=== PATIENT | male | born 2000 ===

== ENCOUNTER 2022-12-30 13:57 | Emergency (ER) | payer SELFPAY ==
--- NOTE | 2022-12-30 14:26 | ED_ITS ---
HPI - Abdominal Pain General Chief Complaint: Nausea/Vomiting/Diarrhea Stated Complaint: vomiting since last night Time Seen by Provider: 12/30/22 17:16 Source: patient and family Mode of arrival: ambulatory Limitations: no limitations History of Present Illness HPI narrative: 22 yo male with no known medical history here with complaints of vomiting/diarrhea since last evening. Per patient his girlfriend has influenza. No abdominal pain, fevers, uri symptoms, skin rash, headache, neck pain/neck stiffness. Related Data Previous Rx's Medication Instructions Recorded ondansetron 4 mg disintegrating 4 mg PO Q6H PRN nausea and 12/30/22 tablet vomiting #15 tabs Allergies Allergy/AdvReac Type Severity Reaction Status Date / Time No Known Allergies Allergy Verified 12/30/22 14:28 Review of Systems Review of Systems Yes all other systems are reviewed and are negative Constitutional: Reports no additional constitutional complaints, Denies body ache(s), Denies chills, Denies fever(s), Denies headache(s) and Denies weakness Eyes: Reports no additional eye complaints and Denies change in vision Reports system reviewed and no additional complaints, except as documented, Denies dizziness, Denies headache(s), Denies nasal congestion, Denies nasal discharge and Denies neck pain Cardiovascular: Reports no additional cardiovascular complaints, Denies chest pain, Denies leg edema and Denies dyspnea Respiratory: Reports no additional respiratory complaints, Denies cough and Denies dyspnea Gastrointestinal: Reports no additional gastrointestinal complaints, Denies abdominal pain, Denies diarrhea, Reports nausea and Reports vomiting Genitourinary: Denies urinary incontinence Musculoskeletal: Reports no additional musculoskeletal complaints, Denies back pain, Denies arthralgias, Denies joint swelling, Denies neck pain, Denies numbness and Denies tingling Skin/Breast: Reports system reviewed and no additional complaints, except as docu and Denies rash Reports system reviewed and no additional complaints, except as documented, Denies dizziness, Denies headache(s), Denies numbness, Denies tingling and Denies weakness PMFSH Past Medical History Attestation statement: The following information was validated with the patient. Source: old records reviewed and nursing notes reviewed Social History Social History Alcohol intake: current Alcohol intake frequency: holidays/special occasions only Smoked in Last 30 Days: No Use of substances other than those prescribed or required for medical reasons: Yes Substance Use Type: Marijuana Substance Use Frequency: Daily Last Used Substance: Just Prior to Admission Physical Exam ED Vital Signs: Vital Signs - 24 hr 12/30/22 14:28 12/30/22 17:42 Temperature 97.8 F Pulse Rate 63 Respiratory Rate 18 18 Blood Pressure 122/76 Pulse Oximetry 98 Oxygen Delivery Method Room Air BMI result Body Mass Index 20.8 Const General: cooperative, healthy appearing, comfortable and no acute distress Orientation/consciousness: patient oriented x3 Limitations: no limitations HENMT Head: Yes normal to inspection Ears: hearing grossly normal bilaterally Eyes General: appearance normal, both eyes and all related structures Pupils: Equal, round and reactive pupils present Neck Neck: Yes normal visual inspection, Yes full ROM, Yes no lymphadenopathy and Yes no meningeal signs Chest Chest palpation & inspection: normal inspection of the chest Resp Effort & Inspection: normal respiratory effort Auscultation: clear to auscultation bilaterally Cardio Rate: regular rate Rhythm: regular rhythm Peripheral pulses: Peripheral pulses 2+ throughout GI Inspection: Yes normal to inspection Palpation (GI): Soft to palpation and nontender General: Yes no CVA tenderness Back/Spine/Pelvis Back: no CVA tenderness Thoracic/Lumbar Spine: thoracic and lumbar spine normal to inspection Skin General skin exam: no rashes or lesions noted Neuro General: patient oriented x3, moves all extremities and no meningeal signs Cranial nerves: Yes Equal, round and reactive pupils present Cognition (Neuro): normal cognition Gait exam (Neuro): Normal gait present Extrem General: Yes normal to inspection, Yes no pedal edema and Yes no calf tenderness Course Course Course Narrative: This is a rapid medical exam. Deferred additional HPI, ROS, PE to primary provider. 22-year-old male with no known medical history presents to the ER with complaints of vomiting and diarrhea since last evening with tactile temps. Patient here with partner who is flu +. No abdominal pain Will obtain labs, UA, covid/flu/rsv testing VSS Reevaluation(s) Reevaluation #1: Labs show mildly elevated total bili with normal direct bili, mildly elevated AST and ALT. These may be secondary did to vomiting or from fatty liver disease. No focal abdominal pain, rebound or guarding to suggest intra- abdominal pathology. Flu screen is positive. Patient is tolerating p.o. after receiving IV fluids and antiemetics. Plan for discharge home with Zofran p.r.n.. Antivirals are not warranted as patient may have further side effects of vomiting and diarrhea. Reviewed worrisome signs and symptoms and when to return to the emergency room. Comfortable plan for discharge home. Medical Decision Making Medical Decision Making [facility] Narrative: 22 yo male with no known medical history here with complaints of vomiting/diarrhea since last evening. Per patient his girlfriend has influenza. No abdominal pain, fevers, uri symptoms, skin rash, headache, neck pain/neck s tiffness. No focal abdominal pain LS CTA VSS Will obtain labs, UA, covid/flu testing Will place PIV and give IVF, antiemetic and re-assess Differential Diagnosis Differential Diagnoses: The differential diagnosis associated with the prese ntation includes influenza, gastroenteritis low concern for acute abdomen Admission/Observation Consideration of admission/observation: Escalation of care including admission/observation considered Able to tolerate PO with no additional vomiting episodes, normal labs with no signs of dehydration Lab Data [facility] Lab Attestation statement: I reviewed the patient's lab results. 12/30/22 16:17 12/30/22 16:17 Labs: Lab Results 12/30/22 12/30/22 12/30/22 Range/Units 16:17 16:17 16:17 WBC 10.3 (4.8-10.8) X10*3/uL RBC 4.86 (4.60-5.80) X10*6/uL Hgb 15.0 (14.0-18.0) g/dl Hct 41.8 L (42.0-52.0) % MCV 86.0 (80.0-98.0) fL MCH 30.9 (27.0-33.0) pg MCHC 35.9 (31.0-36.0) g/dl RDW 11.8 (11.0-16.0) % Plt Count 223 (160-400) X10*3/uL MPV 9.3 L (9.4-12.4) fL Immature Gran % (Auto) 0.5 H (0.0-0.4) % Neut % (Auto) 85.8 H (45-73) % Lymph % (Auto) 10.9 L (20-40) % [place] % (Auto) 2.6 (2-11) % Eos % (Auto) 0.0 (0-4) % Baso % (Auto) 0.2 (0-2) % Lymph # (Auto) 1.1 L (1.2-4.9) X10*3/uL [place] # (Auto) 0.3 (0.1-1.2) X10*3/uL Eos # (Auto) 0.0 (0.0-0.4) X10*3/uL Baso # (Auto) 0.0 (0.0-0.2) X10*3/uL Abs Immat Gran (auto) 0.05 H (0.00-0.03) X10*3/uL Absolute Neuts (auto) 8.9 H (2.0-8.3) x10*3/uL Absolute Nucleated RBC 0.000 (0.0-0.012) X10*3/uL Nucleated RBC % (auto) 0.0 (0.0-0.2) /100WBC Sodium 145 (135-145) mmol/L Potassium 4.2 (3.3-5.1) mmol/L Chloride 106 (96-108) mmol/L Carbon Dioxide 26 (22-29) mmol/L Anion Gap 17 (12-20) BUN 13 (9-16) mg/dL Creatinine 0.92 (0.5-1.4) mg/dL Estim Creat Clear Calc 123.1 Estimated GFR > 60 Random Glucose 104 (60-115) mg/dL Calcium 10.3 H (8.4-10.2) mg/dL Total Bilirubin 1.3 H (0.0-1.0) mg/dL Direct Bilirubin 0.5 (0.0-0.5) mg/dL AST 76 H (5-37) U/L ALT 60 H (0-40) U/L Alkaline Phosphatase 45 (39-117) U/L Total Protein 8.8 H (6.5-8.0) g/dL Albumin 5.0 (3.5-5.0) g/dL Influenza Type A (PCR) NEGATIVE (Negative) Influenza Type B (PCR) POSITIVE A (Negative) RSV RNA Qual (PCR) NEGATIVE (Negative) SARS-CoV-2 RNA (RT-PCR) NEGATIVE (Negative) Prescription Management I considered prescription management with: Antiviral Would not give Tamiflu as patient has current symptoms of vomiting and diarrhea which may make his symptoms worse. Medications Administered Generic Name Dose Route Start Last Admin Trade Name Freq PRN Reason Stop Dose Admin Sodium Chloride 2,000 mls @ 999 mls/hr 12/30/22 17:12 12/30/22 17:36 Ns IV 12/30/22 19:12 999 mls/hr .Q2H1M STA Administration Discontinued Medications Generic Name Dose Route Start Last Admin Trade Name Freq PRN Reason Stop Dose Admin Ondansetron HCl 4 mg 12/30/22 17:12 12/30/22 17:36 Ondansetron Hcl 4 Mg/2 Ml Vial IVPUSH 12/30/22 17:13 4 mg ONCE ONE Administration Discharge Plan Discharge Clinical Impression: Influenza Patient Disposition: Home, Self-Care Instructions: Influenza (ED) Additional Instructions: Start with clear liquids and advance diet as tolerated Take the Zofran as needed Return for any worsening symptoms Prescriptions: New ondansetron 4 mg tablet,disintegrating 4 mg PO Q6H PRN (Reason: nausea and vomiting) Qty: 15 0RF Referrals: Physician,Unknown J [Primary Care Provider] - 1 week Stand Alone Forms: Work/School Release
[2022-12-30 14:28] VITALS: BP 122/76; PULSE 63; RESP 18; TEMP 36.6; O2SAT 98; BMI 20.8
[2022-12-30 16:21] LABS: MANUAL DIFF FLAG NO
[2022-12-30 16:23] LABS: Basophils Percent Auto 0.2 % (0-2); Hematocrit 41.8 % (42.0-52.0); Imm Gran Abs Auto 0.05 X10*3/uL (0.00-0.03); Imm Gran Pct Auto 0.5 % (0.0-0.4); Lymphocytes Absolute Auto 1.1 X10*3/uL (1.2-4.9); Lymphocytes Percent Auto 10.9 % (20-40); Mean Corpuscular HGB Conc 35.9 g/dl (31.0-36.0); Mean Corpuscular Hemoglobin 30.9 pg (27.0-33.0); Mean Platelet Volume 9.3 fL (9.4-12.4); Monocytes Absolute Auto 0.3 X10*3/uL (0.1-1.2); Monocytes Percent Auto 2.6 % (2-11); Neutrophils Absolute Auto 8.9 x10*3/uL (2.0-8.3); Neutrophils Percent Auto 85.8 % (45-73); Platelet Count 223 X10*3/uL (160-400); Red Blood Count 4.86 X10*6/uL (4.60-5.80); Red Cell Distribution Width 11.8 % (11.0-16.0); White Blood Count 10.3 X10*3/uL (4.8-10.8)
[2022-12-30 16:48] LABS: Alanine Aminotransferase 60 U/L (0-40); Alkaline Phosphatase 45 U/L (39-117); Anion Gap 17 (12-20); Aspartate Amino Transferase 76 U/L (5-37); Bilirubin Direct 0.5 mg/dL (0.0-0.5); Bilirubin Total 1.3 mg/dL (0.0-1.0); Blood Urea Nitrogen 13 mg/dL (9-16); Calcium 10.3 mg/dL (8.4-10.2); Carbon Dioxide 26 mmol/L (22-29); Chloride 106 mmol/L (96-108); Creatinine Clr Calc Pharmacy 123.1; Estimated Glomerular Filt Rate > 60; Glucose Random 104 mg/dL (60-115); Potassium 4.2 mmol/L (3.3-5.1); Sodium 145 mmol/L (135-145); Total Protein 8.8 g/dL (6.5-8.0)
[2022-12-30 17:00] LABS: Influenza A PCR NEGATIVE (Negative); Influenza B PCR POSITIVE (Negative); Resp Syncy Virus RNA Qual PCR NEGATIVE (Negative); SARS COV2 PCR INHOUSE NEGATIVE (Negative)
[2022-12-30] MEDS: 0.9 % Sodium Chloride 2,000 ML 999 ML IV (17:36)
[2022-12-30] MEDS: ondansetron HCL 4 MG/2 ML VIAL IVPUSH (17:36)
[2022-12-30 17:42] VITALS: RESP 18
--- NOTE | 2022-12-30 17:45 | PC.NURSE ---
pt a&ox3. respirations even and unlabored. pt reports the onset of nausea and vomiting since last night. pt reports an 8/10 throat pain. pt reports pain when he throws up. pt denies chest pain at this time. pt medicated per jun.
== END 2022-12-30 18:50 | disposition home or self-care (01) ==
PROVIDERS: Nurse Practitioner Family; Emergency Provider Student in an Organized Health Care Education/Training Program
DX: J10.1 Influenza due to other identified influenza virus with other respiratory manifestations (principal); Z20.822 Contact with and (suspected) exposure to COVID-19
CPT/HCPCS: 0241U; 80048; 80076; 85025; 96361; 96374; 99284; J2405

== ENCOUNTER 2023-03-03 08:12 | Emergency (ER) | payer OTHER, SELFPAY ==
--- NOTE | ~2023-03-03 | XR_ITS ---
EXAMINATION: XR WRIST, RIGHT XR HAND, RIGHT CLINICAL INFORMATION: Hand pain COMPARISON: None available. TECHNIQUE: PA, lateral, and oblique views of the right wrist and PA, lateral, and oblique views of the right hand FINDINGS: RIGHT WRIST: A screw is present through the hamate. The bones and soft tissues are otherwise unremarkable. No fracture. Alignment is anatomic. Joint spaces are maintained. No erosions or soft tissue calcifications. RIGHT HAND: The bones and soft tissues are normal. No fracture. Alignment is anatomic. Joint spaces are maintained. No erosions or soft tissue calcifications. XR/XR hand wrist RT IMPRESSION: No evidence of an acute injury. A screw is present through the hamate.
[2023-03-03 08:28] VITALS: BP 119/85; PULSE 69; RESP 16; TEMP 36.6; O2SAT 99; BMI 20.8
[2023-03-03 11:40] VITALS: BP 110/69; PULSE 50; RESP 16; TEMP 36.8; O2SAT 98
--- NOTE | 2023-03-03 12:35 | ED.EXTPRO ---
HPI - Extremity Problem General Chief complaint: Extremity Problem Stated complaint: R hand pain Time Seen by Provider: 03/03/23 09:00 History of Present Illness HPI Narrative: patient complains of 5 days of pain in the right hand getting worse while he is at work, he had no specific injury at work but it may be from overuse, he does have a pre-existing injury in the area of his pain which was fractured some years ago and was surgically repaired for a meta carpal fracture No numbness weakness or tingling no new trauma just overuse, denies any redness or rash Related Data Previous Rx's Medication Instructions Recorded ondansetron 4 mg disintegrating 4 mg PO Q6H PRN nausea and 12/30/22 tablet vomiting #15 tabs acetaminophen 500 mg tablet 1,000 mg (2 x 500 mg) PO QID PRN 03/03/23 pain #30 tabs ibuprofen 600 mg tablet 600 mg PO Q6H PRN pain #20 tabs 03/03/23 Allergies Allergy/AdvReac Type Severity Reaction Status Date / Time No Known Allergies Allergy Verified 03/03/23 08:40 COUNT INCLUDES THE [facility] Past Medical History Source: nursing notes reviewed Social History Social History Alcohol intake: current Alcohol intake frequency: holidays/special occasions only Substance Use Type: Marijuana Advance Directives: No Advance Directives Information Provided: No Physical Exam Vital Signs: Vital Signs: Last Vital Signs Temp 98.2 F 03/03/23 11:40 Pulse 50 03/03/23 11:40 Resp 16 03/03/23 11:40 BP 110/69 03/03/23 11:40 Pulse Ox 98 03/03/23 11:40 O2 Del Method Room Air 03/03/23 11:40 BMI result Body Mass Index 20.8 general appearance no distress Head is normocephalic atraumatic Neck is supple Respiratory no distress Extremities full range of motion x4 Right hand exam there is tenderness over the base of 4th and 5th metacarpals there is no redness no warmth no swelling range of motion is full, neurovascular intact distal Other extremities normal Skin no rashes Neuro no focal motor sensory deficits Course Course Course Narrative: x-ray reviewed by me not confirmed by radiologist shows hardware in place with some arthritic changes no obvious acute fracture Patient is advised that I will call him if radiology report differs from what I told him He will follow with hand doctor and is given a light duty note for work Discharge Plan Discharge Clinical Impression: Hand pain, right Patient Disposition: Home, Self-Care Additional Instructions: x-ray will be read by a radiologist later and I will call you if he sees something that I missed I saw the hardware which seem to be in place and some arthritic changes Best plan is to follow with hand Dr. Return any time any worse condition or any concerns Prescriptions: New acetaminophen 500 mg tablet 1,000 mg PO QID PRN (Reason: pain) Qty: 30 0RF ibuprofen 600 mg tablet 600 mg PO Q6H PRN (Reason: pain) Qty: 20 0RF No Action ondansetron 4 mg tablet,disintegrating 4 mg PO Q6H PRN (Reason: nausea and vomiting) Qty: 15 0RF Referrals: Radha Leija MD [Physician] - ( history of surgical repair for right hand fracture complains of new onset worsening pain) Stand Alone Forms: Work/School Release
== END 2023-03-03 12:52 | disposition home or self-care (01) ==
PROVIDERS: Emergency Provider Student in an Organized Health Care Education/Training Program
DX: M79.641 Pain in right hand (principal); M25.531 Pain in right wrist
CPT/HCPCS: 73110; 73130; 99283

== ENCOUNTER 2023-08-15 03:35 | Emergency (ER) | payer OTHER, SELFPAY ==
[2023-08-15 03:38] VITALS: BP 121/72; PULSE 76; RESP 16; TEMP 37.2; O2SAT 97; BMI 20.3
[2023-08-15] MEDS: Acetaminophen 325 MG TABLET 975 MG PO (04:08)
[2023-08-15 06:15] VITALS: BP 112/56; PULSE 49; RESP 16; O2SAT 99
--- NOTE | 2023-08-15 06:51 | ED.EXTPRO ---
HPI - Extremity Problem General Chief complaint: Extremity Problem Stated complaint: surgery on hand complication? Time Seen by Provider: 08/15/23 06:34 Source: patient and supervisor [employer] house Mode of arrival: ambulatory Limitations: language barrier History of Present Illness HPI Narrative: This is a 22-year-old male who has a history of having a right 5th metacarpal fracture requiring surgical intervention who is right-hand dominant who presents the ER with complaints of bilateral hand pain with intermittent numbness and tingling over the last 6 months. Patient reports he was seen here in the emergency room in February of 2023 and diagnosed with arthritis. He did not follow-up with a primary care as he does not have 1. He does currently have insurance. 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 He denies any new injury or trauma. He reports pain is worsened after working a shift. He denies any associated swelling, erythema, weakness, fevers, chills. Related Data Previous Rx's ?Medication ?Instructions ?Recorded ondansetron 4 mg disintegrating 4 mg PO Q6H PRN nausea and 12/30/22 tablet vomiting #15 tabs acetaminophen 500 mg tablet 1,000 mg (2 x 500 mg) PO QID PRN 03/03/23 pain #30 tabs ibuprofen 600 mg tablet 600 mg PO Q6H PRN pain #20 tabs 03/03/23 naproxen 500 mg tablet 500 mg PO BID PRN pain #30 tabs 08/15/23 Allergies Allergy/AdvReac Type Severity Reaction Status Date / Time No Known Allergies Allergy Verified 08/15/23 03:41 Review of Systems Review of Systems: Yes all other systems are reviewed and are negative Constitutional: Constitutional: Reports no additional constitutional complaints, Denies body ache(s), Denies chills, Denies fever(s), Denies headache(s) and Denies weakness Eyes: Eyes: Reports no additional eye complaints and Denies change in vision ENT: Reports system reviewed and no additional complaints, except as documented, Denies dizziness, Denies headache(s), Denies nasal congestion, Denies nasal discharge and Denies neck pain Cardiovascular: Cardiovascular: Reports no additional cardiovascular complaints, Denies chest pain, Denies leg edema and Denies dyspnea Respiratory: Respiratory: Reports no additional respiratory complaints, Denies cough and Denies dyspnea Gastrointestinal: Gastrointestinal: Reports no additional gastrointestinal complaints, Denies abdominal pain, Denies diarrhea, Denies nausea and Denies vomiting Genitourinary: Genitourinary: Denies urinary incontinence Musculoskeletal: Musculoskeletal: Reports no additional musculoskeletal complaints, Denies back pain, Reports arthralgias, Denies joint swelling, Denies limited range of motion, Denies neck pain, Reports numbness and Reports tingling Integumentary/Breasts: Skin/Breast: Reports system reviewed and no additional complaints, except as docu and Denies rash Neurologic: Reports system reviewed and no additional complaints, except as documented, Denies Abnormal speech present, Denies dizziness, Denies headache(s), Reports numbness, Reports tingling and Denies weakness PMFSH Past Medical History Attestation statement: The following information was validated with the patient. Source: old records reviewed and nursing notes reviewed Social History Social History Alcohol intake: current Alcohol intake frequency: holidays/special occasions only Smoked in Last 30 Days: No Use of substances other than those prescribed or required for medical reasons: Yes Substance Use Type: Marijuana Advance Directives: No Advance Directives Information Provided: No Physical Exam Vital Signs: Vital Signs: Last Vital Signs Temp 98.9 F 08/15/23 03:38 Pulse 49 L 08/15/23 06:15 Resp 16 08/15/23 06:15 BP 112/56 L 08/15/23 06:15 Pulse Ox 99 08/15/23 06:15 O2 Del Method Room Air 08/15/23 06:15 BMI result Body Mass Index 20.3 Const: General: cooperative, healthy appearing, comfortable and no acute distress Orientation/consciousness: patient oriented x3 Limitations: no limitations HEENT: Head: Yes normal to inspection Ears: hearing grossly normal bilaterally General nose exam: Normal external nose present Face and sinus: Yes normal facial exam Mouth: Normal oral and palatal mucosa present Throat: Yes posterior oropharynx normal Eyes: General: appearance normal, both eyes and all related structures Pupils: Equal, round and reactive pupils present Neck: Neck: Yes normal visual inspection Chest: Chest palpation & inspection: normal inspection of the chest Resp: Effort & Inspection: normal respiratory effort Auscultation: clear to auscultation bilaterally Cardio: Rate: regular rate Rhythm: regular rhythm Peripheral pulses: Peripheral pulses 2+ throughout GI: Inspection: Yes normal to inspection Palpation (GI): Soft to palpation and nontender Auscultation: normal bowel sounds Back/Spine/Pelvis: Thoracic/Lumbar Spine: thoracic and lumbar spine normal to inspection Skin: General skin exam: no rashes or lesions noted Neuro: General: patient oriented x3, no focal motor deficits and normal sensation to monofilament Cranial nerves: Yes Equal, round and reactive pupils present Cognition (Neuro): normal cognition Speech: No Abnormal speech present Gait exam (Neuro): Normal gait present Motor exam (neuro): 5/5 motor strength present throughout Extrem: Other: +tinel and +phalen sign bilaterally Negative Wilberto test Full active and passive range of motion of bilateral wrists and hands. Normal distal sensation. No appreciable swelling, erythema, warmth. Bilateral ulnar and radial pulses are 2+ General: Yes normal to inspection Medications Administered Discontinued Medications Generic Name Dose Route Start Last Admin Trade Name Freq PRN Reason Stop Dose Admin Acetaminophen 975 mg 08/15/23 04:02 08/15/23 04:08 Acetaminophen 325 Mg Tablet PO 08/15/23 04:03 975 mg ONCE ONE Administration Medical Decision Making Medical Decision Making [facility] Narrative: This is a 22-year-old male who has a history of having a right 5th metacarpal fracture requiring surgical intervention who is right-hand dominant who presents the ER with complaints of bilateral hand pain with intermittent numbness and tingling over the last 6 months.? Patient reports he was seen here in the emergency room in February of 2023 and diagnosed with arthritis.? He did not follow-up with a primary care as he does not have 1.? He does currently have insurance.? 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 He denies any new injury or trauma.? He reports pain is worsened after working a shift.? He denies any associated swelling, erythema, weakness, fevers, chills. +tinel and +phalen sign bilaterally Negative Wilberto test Full active and passive range of motion of bilateral wrists and hands.? Normal distal sensation.? No appreciable swelling, erythema, warmth.? Bilateral ulnar and radial pulses are 2+ Exam c/w with carpal tunnel Will place patient bilateral wrist splints, recommend NSAIDs Homans supportive measures. He should establish a primary care doctor and follow up with hand surgery outpatient. Reviewed worrisome signs and symptoms of when to return to the emergency room. Comfortable plan for discharge home. Differential Diagnosis Differential Diagnoses: The differential diagnosis associated with the presentation includes Carpal tunnel syndrome Low suspicion for fracture, dislocation, vascular injury Admission/Observation Consideration of admission/observation: Escalation of care including admission/observation considered low suspicion for fracture, dislocation, vascular injury requiring imaging, urgent orthopedic consultation Tests considered The following testing was considered but not selected: low suspicion for fracture, dislocation, vascular injury requiring imaging, Prescription Management I considered prescription management with: Pain Medication Discharge Plan Discharge Clinical Impression: Acute carpal tunnel syndrome Patient Disposition: Home, Self-Care Instructions: Carpal Tunnel Surgery (DC) Additional Instructions: Use the wrist splints when sleeping Heat or ice Follow-up with hand surgery Prescriptions: New naproxen 500 mg tablet 500 mg PO BID PRN (Reason: pain) Qty: 30 0RF No Action acetaminophen 500 mg tablet 1,000 mg PO QID PRN (Reason: pain) Qty: 30 0RF ibuprofen 600 mg tablet 600 mg PO Q6H PRN (Reason: pain) Qty: 20 0RF ondansetron 4 mg tablet,disintegrating 4 mg PO Q6H PRN (Reason: nausea and vomiting) Qty: 15 0RF Referrals: Radha Leija MD [Physician] - 1 week Stand Alone Forms: Work/School Release Print Language: Portuguese
[2023-08-15 07:47] VITALS: BP 112/56; PULSE 62; RESP 18; TEMP 37.2; O2SAT 98
== END 2023-08-15 07:48 | disposition home or self-care (01) ==
PROVIDERS: Emergency Provider Emergency Medicine Emergency Medical Services
DX: G56.01 Carpal tunnel syndrome, right upper limb (principal)
CPT/HCPCS: 99283; 99284

== ENCOUNTER 2023-09-05 21:27 | Emergency (ER) | payer OTHER, SELFPAY ==
[2023-09-05 21:30] VITALS: BP 119/70; PULSE 87; RESP 16; TEMP 37.1; O2SAT 97; BMI 21.7
[2023-09-05 22:04] LABS: IDNOW Serial# 08D9AD1C; Strep A Nucleic Acid Negative (Negative)
[2023-09-05 22:26] VITALS: BP 120/72; PULSE 84; RESP 18; TEMP 37; O2SAT 98
[2023-09-05 22:29] LABS: Influenza A PCR NEGATIVE (Negative); Influenza B PCR NEGATIVE (Negative); Resp Syncy Virus RNA Qual PCR NEGATIVE (Negative); SARS COV2 PCR INHOUSE NEGATIVE (Negative)
--- NOTE | 2023-09-05 23:14 | ED_ITS ---
HPI - General Adult General Chief complaint: General Medical Stated complaint: throat pain Time Seen by Provider: 09/05/23 21:45 Source: patient, RN notes reviewed and old records reviewed Mode of arrival: ambulatory Limitations: no limitations History of Present Illness HPI narrative: 22-year-old male presents for evaluation of fevers and sore throat that started last night. Patient reports that he is able to swallow but has pain with swallowing He reports some mild coughing and congestion. Denies any sick contacts Denies any chest pain, shortness of breath No abdominal pain nausea vomiting Related Data Previous Rx's ?Medication ?Instructions ?Recorded ondansetron 4 mg disintegrating 4 mg PO Q6H PRN nausea and 12/30/22 tablet vomiting #15 tabs acetaminophen 500 mg tablet 1,000 mg (2 x 500 mg) PO QID PRN 03/03/23 pain #30 tabs ibuprofen 600 mg tablet 600 mg PO Q6H PRN pain #20 tabs 03/03/23 naproxen 500 mg tablet 500 mg PO BID PRN pain #30 tabs 08/15/23 amoxicillin 875 mg-potassium 1 tab PO BID #14 tabs 09/05/23 clavulanate 125 mg tablet Allergies Allergy/AdvReac Type Severity Reaction Status Date / Time No Known Allergies Allergy Verified 09/05/23 21:36 Review of Systems Constitutional: Constitutional: Reports body ache(s), Denies chills, Reports fever(s) and Reports malaise ENT: Reports nasal congestion, Reports sore throat and Denies throat swelling Cardiovascular: Cardiovascular: Denies chest pain and Denies dyspnea Respiratory: Respiratory: Reports cough, Denies pain with cough and Denies dyspnea Gastrointestinal: Gastrointestinal: Denies abdominal pain, Denies nausea and Denies vomiting Musculoskeletal: Musculoskeletal: Denies back pain Integumentary/Breasts: Skin/Breast: Denies rash Allergic/Immunologic: Allergic/Immunologic: Denies throat swelling PMFSH Social History Social History Alcohol intake: current Alcohol intake frequency: holidays/special occasions only Substance Use Type: Marijuana Physical Exam ED Vital Signs: Vital Signs - 24 hr 09/05/23 21:30 09/05/23 22:26 Temperature 98.8 F 98.6 F Pulse Rate 87 84 Respiratory Rate 16 18 Blood Pressure 119/70 120/72 Pulse Oximetry 97 98 Oxygen Delivery Method Room Air Room Air BMI result Body Mass Index 21.7 Const General: healthy appearing, comfortable, no acute distress, alert and awake Nutritional Appearance: well nourished Orientation/consciousness: patient oriented x3 HENMT Other: Erythematous oropharynx with whitish exudates. There is left peritonsillar lymphadenopathy positive. No anterior neck swelling Head: Yes normocephalic and Yes atraumatic Throat: No posterior oropharynx normal Eyes Eyelids: Yes eyelids normal Conjunctivae: conjunctivae normal Sclerae: sclerae normal Corneas: corneas normal Pupils: Equal, round and reactive pupils present EOM: EOMs intact bilaterally Neck Neck: Yes full ROM Resp Effort & Inspection: normal respiratory effort, able to speak in complete sentences, no audible wheezes and not labored Auscultation: clear to auscultation bilaterally Skin General skin exam: elasticity normal Neuro General: patient oriented x3 Cranial nerves: Yes Equal, round and reactive pupils present and Yes Bilaterally intact EOM present Cognition (Neuro): normal cognition Extrem Other: Moving all extremities well without any obvious deformities Medical Decision Making Medical Decision Making MDM Narrative: Patient is quite well appearing complaining of sore throat and subjective fever since last night. His viral swabs are negative, he was negative for strep. Given the exudative pharyngitis with subjective fevers will treat with Augmentin b.i.d. x7 days. Lungs are clear to auscultation he has not hypoxic, doubt pneumonia. He has no GI symptoms. There is no evidence of peritonsillar abscess Differential Diagnosis Differential Diagnoses: The differential diagnosis associated with the presentation includes Exudative pharyngitis Upper respiratory infection Viral syndrome Strep pharyngitis Lab Data Labs: Lab Results 09/05/23 Range/Units 21:46 Influenza Type A (PCR) NEGATIVE (Negative) Influenza Type B (PCR) NEGATIVE (Negative) RSV RNA Qual (PCR) NEGATIVE (Negative) SARS-CoV-2 RNA (RT-PCR) NEGATIVE (Negative) S. pyogenes GrpA MARCEL Negative (Negative) Discharge Plan Discharge Clinical Impression: Pharyngitis Patient Disposition: Home, Self-Care Instructions: Pharyngitis (ED) Additional Instructions: Your viral swabs were negative. Take Augmentin twice daily for the next 7 days Drink lots of fluids Use Motrin/Tylenol for pain and fevers You may also use saltwater gargles Follow-up with your primary doctor Prescriptions: New amoxicillin-pot clavulanate 875-125 mg tablet 1 tab PO BID Qty: 14 0RF No Action acetaminophen 500 mg tablet 1,000 mg PO QID PRN (Reason: pain) Qty: 30 0RF ibuprofen 600 mg tablet 600 mg PO Q6H PRN (Reason: pain) Qty: 20 0RF naproxen 500 mg tablet 500 mg PO BID PRN (Reason: pain) Qty: 30 0RF ondansetron 4 mg tablet,disintegrating 4 mg PO Q6H PRN (Reason: nausea and vomiting) Qty: 15 0RF Print Language: American
[2023-09-05 23:42] VITALS: BP 120/74; PULSE 82; RESP 16; TEMP 36.9; O2SAT 98
== END 2023-09-05 23:22 | disposition home or self-care (01) ==
PROVIDERS: Emergency Provider Emergency Medicine
DX: J02.9 Acute pharyngitis, unspecified (principal); Z03.818 Encounter for observation for suspected exposure to other biological agents ruled out
CPT/HCPCS: 0241U; 87651; 99283; 99284

== ENCOUNTER 2023-12-31 19:55 | Emergency (ER) | payer OTHER, SELFPAY ==
[2023-12-31 20:19] VITALS: BP 124/71; PULSE 70; RESP 18; TEMP 36.6; O2SAT 99; BMI 20.3
--- NOTE | 2023-12-31 20:19 | ED_ITS ---
HPI - General Adult General Chief complaint: Abdominal Pain Stated complaint: abd pain Time Seen by Provider: 12/31/23 21:27 Source: patient Mode of arrival: ambulatory Limitations: no limitations History of Present Illness ED Provider: milly ARROYO narrative: Patient otherwise healthy complaining of epigastric pain with burning sensation going to the chest for last 2 weeks pain gets worse after eating no history of alcohol use no history of pancreatitis Related Data Previous Rx's ?Medication ?Instructions ?Recorded ondansetron 4 mg disintegrating 4 mg PO Q6H PRN nausea and 12/30/22 tablet vomiting #15 tabs acetaminophen 500 mg tablet 1,000 mg (2 x 500 mg) PO QID PRN 03/03/23 pain #30 tabs ibuprofen 600 mg tablet 600 mg PO Q6H PRN pain #20 tabs 03/03/23 naproxen 500 mg tablet 500 mg PO BID PRN pain #30 tabs 08/15/23 amoxicillin 875 mg-potassium 1 tab PO BID #14 tabs 09/05/23 clavulanate 125 mg tablet omeprazole 40 mg capsule,delayed 40 mg PO DAILY #30 caps 12/31/23 release sucralfate 1 gram tablet 1 g PO TID #90 tabs 12/31/23 Allergies Allergy/AdvReac Type Severity Reaction Status Date / Time No Known Allergies Allergy Verified 12/31/23 20:22 Review of Systems 2 Review of Systems: Yes all other systems are reviewed and are negative [facility] Social History Social History Alcohol intake: current Alcohol intake frequency: holidays/special occasions only Substance Use Type: Marijuana Advance Directives: No Advance Directives Information Provided: No Do you have a plan to hurt others: No Plan Physical Exam ED Vital Signs: Vital Signs - 24 hr 12/31/23 20:19 12/31/23 22:47 Temperature 97.9 F 97.9 F Pulse Rate 70 74 Respiratory Rate 18 18 Blood Pressure 124/71 122/68 Pulse Oximetry 99 99 Oxygen Delivery Method Room Air Room Air BMI result Body Mass Index 20.3 Appearance: Alert. Oriented X3. No acute distress. Eyes: PERRLA, No Nystagmus ENT: Pharynx normal. Oral Mucosa moist Neck: Normal inspection. Neck supple. CVS: Normal heart rate and rhythm. Pulses normal. Respiratory: No respiratory distress. Equal air entry bilateral, no wheezing/rales/rhonchi Abdomen: Soft and slight epigastric tenderness Bowel sounds are present, no mass palpable, no CVA tenderness Skin: Skin warm and dry. Normal skin color. Normal skin turgor. Extremities: No lower extremity edema. No calf tenderness Neuro: Oriented X 3. N Course Course Course Narrative: RME performed by Ebonie Titus PA-C. Patient is a 23 year old assigned male at presenting to the emergency department with abdominal pain. Patient states he has been having abdominal pain over the last few days and soft stools. Detailed physical exam and review of systems are deferred to the parts finisher. Labs and swabs ordered. Patient placed back in the waiting room pending room availability and results. Medical Decision Making Medical Decision Making [facility] Narrative: Patient with gastritis symptoms improved after Maalox and Pepcid will discharge patient home advised to drink plenty of fluids patient had transient hypoglycemia asymptomatic etiology not clear Lab Data [facility] Lab Attestation statement: I reviewed the patient's lab results. 12/31/23 20:41 12/31/23 20:41 Labs: Lab Results 12/31/23 12/31/23 Range/Units 20:41 21:22 WBC 6.3 (4.8-10.8) X10*3/uL RBC 4.38 L (4.60-5.80) X10*6/uL Hgb 14.1 (14.0-18.0) g/dl Hct 40.0 L (42.0-52.0) % MCV 91.3 (80.0-98.0) fL MCH 32.2 (27.0-33.0) pg MCHC 35.3 (31.0-36.0) g/dl RDW 12.1 (11.0-16.0) % Plt Count 223 (160-400) X10*3/uL MPV 8.9 L (9.4-12.4) fL Immature Gran % (Auto) 0.2 (0.0-0.4) % Neut % (Auto) 51.0 (45-73) % Lymph % (Auto) 38.8 (20-40) % [place] % (Auto) 7.3 (2-11) % Eos % (Auto) 2.2 (0-4) % Baso % (Auto) 0.5 (0-2) % Lymph # (Auto) 2.5 (1.2-4.9) X10*3/uL [place] # (Auto) 0.5 (0.1-1.2) X10*3/uL Eos # (Auto) 0.1 (0.0-0.4) X10*3/uL Baso # (Auto) 0.0 (0.0-0.2) X10*3/uL Abs Immat Gran (auto) 0.01 (0.00-0.03) X10*3/uL Absolute Neuts (auto) 3.2 (2.0-8.3) x10*3/uL Absolute Nucleated RBC 0.000 (0.0-0.012) X10*3/uL Nucleated RBC % (auto) 0.0 (0.0-0.2) /100WBC Sodium 141 (135-145) mmol/L Potassium 3.7 (3.3-5.1) mmol/L Chloride 105 (96-108) mmol/L Carbon Dioxide 28 (22-29) mmol/L Anion Gap 12 (12-20) BUN 16 (9-16) mg/dL Creatinine 1.06 (0.5-1.4) mg/dL Estim Creat Clear Calc 103.4 Estimated GFR > 60 POC Glucose 104 (60-115) mg/dL Random Glucose 57 L* (60-115) mg/dL Calcium 9.5 D (8.4-10.2) mg/dL Magnesium 2.2 (1.6-2.6) mg/dL Total Bilirubin 3.0 H (0.0-1.0) mg/dL AST 19 (5-37) U/L ALT 15 (0-40) U/L Alkaline Phosphatase 48 (39-117) U/L Total Protein 7.5 (6.5-8.0) g/dL Albumin 4.5 (3.5-5.0) g/dL Urine Color Dark Yellow Urine Appearance Clear Urine pH 6.5 (5.0-9.0) Ur Specific Douglass 1.025 (1.005-1.025) Urine Protein Trace (Neg-Trace) mg/dL Urine Glucose (UA) Negative (Negative) mg/dL Urine Ketones Trace (Negative) mg/dL Urine Blood Negative (Negative) Urine Nitrite Negative (Negative) Ur Leukocyte Esterase Negative (Negative) Influenza Type A (PCR) NEGATIVE (Negative) Influenza Type B (PCR) NEGATIVE (Negative) RSV RNA Qual (PCR) NEGATIVE (Negative) SARS-CoV-2 RNA (RT-PCR) NEGATIVE (Negative) Discharge Plan Discharge Clinical Impression: Acute gastritis Patient Disposition: Home, Self-Care Instructions: Gastritis (ED) Additional Instructions: Take medication as prescribed for your acid reflux Avoid spicy or fried foods Follow with PCP if not better Prescriptions: New omeprazole 40 mg capsule,delayed release(DR/EC) 40 mg PO DAILY Qty: 30 0RF sucralfate 1 gram tablet 1 g PO TID Qty: 90 0RF No Action acetaminophen 500 mg tablet 1,000 mg PO QID PRN (Reason: pain) Qty: 30 0RF ibuprofen 600 mg tablet 600 mg PO Q6H PRN (Reason: pain) Qty: 20 0RF naproxen 500 mg tablet 500 mg PO BID PRN (Reason: pain) Qty: 30 0RF amoxicillin-pot clavulanate 875-125 mg tablet 1 tab PO BID Qty: 14 0RF ondansetron 4 mg tablet,disintegrating 4 mg PO Q6H PRN (Reason: nausea and vomiting) Qty: 15 0RF Stand Alone Forms: Work/School Release Interventions: ED Discharge Assessment Last Done: 12/31/23 22:47 Discharge Date/Time: 12/31/23 22:55 Print Language: Senegalese
--- NOTE | 2023-12-31 20:38 | MHC.EDTECH ---
Patient brought into triage area,labs/Sars/Urine obtained and sent to lab.
[2023-12-31 20:51] LABS: MANUAL DIFF FLAG NO
[2023-12-31 20:52] LABS: Basophils Percent Auto 0.5 % (0-2); Eosinophils Absolute Auto 0.1 X10*3/uL (0.0-0.4); Eosinophils Percent Auto 2.2 % (0-4); Hemoglobin 14.1 g/dl (14.0-18.0); Imm Gran Abs Auto 0.01 X10*3/uL (0.00-0.03); Imm Gran Pct Auto 0.2 % (0.0-0.4); Lymphocytes Absolute Auto 2.5 X10*3/uL (1.2-4.9); Lymphocytes Percent Auto 38.8 % (20-40); Mean Corpuscular HGB Conc 35.3 g/dl (31.0-36.0); Mean Corpuscular Hemoglobin 32.2 pg (27.0-33.0); Mean Corpuscular Volume 91.3 fL (80.0-98.0); Mean Platelet Volume 8.9 fL (9.4-12.4); Monocytes Absolute Auto 0.5 X10*3/uL (0.1-1.2); Monocytes Percent Auto 7.3 % (2-11); Neutrophils Absolute Auto 3.2 x10*3/uL (2.0-8.3); Platelet Count 223 X10*3/uL (160-400); Red Blood Count 4.38 X10*6/uL (4.60-5.80); Red Cell Distribution Width 12.1 % (11.0-16.0); White Blood Count 6.3 X10*3/uL (4.8-10.8)
[2023-12-31 21:00] LABS: Appearance Urine Clear; Color Urine Dark Yellow; Glucose Urine UA Negative (Negative); Leukocyte Esterase Urine Negative (Negative); Nitrite Urine Negative (Negative); PH 6.5 (5.0-9.0); Specific Gravity - Urine 1.025 (1.005-1.025); Urine Blood Negative (Negative); Urine Ketones Trace mg/dL (Negative); Urine Protein Trace mg/dL (Neg-Trace)
[2023-12-31 21:16] LABS: Alanine Aminotransferase 15 U/L (0-40); Albumin Level 4.5 g/dL (3.5-5.0); Alkaline Phosphatase 48 U/L (39-117); Anion Gap 12 (12-20); Aspartate Amino Transferase 19 U/L (5-37); Blood Urea Nitrogen 16 mg/dL (9-16); Calcium 9.5 mg/dL (8.4-10.2); Carbon Dioxide 28 mmol/L (22-29); Chloride 105 mmol/L (96-108); Creatinine Clr Calc Pharmacy 103.4; Estimated Glomerular Filt Rate > 60; Glucose Random 57 mg/dL (60-115); Magnesium 2.2 mg/dL (1.6-2.6); Potassium 3.7 mmol/L (3.3-5.1); Sodium 141 mmol/L (135-145); Total Protein 7.5 g/dL (6.5-8.0)
[2023-12-31 21:25] LABS: Glucose, Whole Blood 104 mg/dL (60-115)
[2023-12-31 21:27] LABS: Influenza A PCR NEGATIVE (Negative); Influenza B PCR NEGATIVE (Negative); Resp Syncy Virus RNA Qual PCR NEGATIVE (Negative); SARS COV2 PCR INHOUSE NEGATIVE (Negative)
[2023-12-31 22:47] VITALS: BP 122/68; PULSE 74; RESP 18; TEMP 36.6; O2SAT 99
== END 2023-12-31 22:55 | disposition home or self-care (01) ==
PROVIDERS: Physician Assistant Medical; Emergency Provider Internal Medicine
DX: K29.00 Acute gastritis without bleeding (principal); Z03.818 Encounter for observation for suspected exposure to other biological agents ruled out; F12.90 Cannabis use, unspecified, uncomplicated; Z79.899 Other long term (current) drug therapy
CPT/HCPCS: 0241U; 80053; 81003; 82947; 83735; 85025; 99283; 99284